=== PATIENT | male | born 1965 | race African-American/Black ===

== ENCOUNTER 2024-02-29 17:54 | Emergency (ER) | payer SELFPAY ==
--- NOTE | 2024-02-29 18:21 | ED_ITS ---
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 from the city when they found after 25 minutes of driving that he is not waking up and she thought that he was sleeping The just drove to here right away Examination Exam Primary Survey: Yes pulseless General: Yes normal body habitus Eyes: Yes no periorbital swelling and Yes fixed dialated pupils Neck: Yes supple Chest: Yes intact to palpation MDM - Cardiac Arrest/CPR MDM Narrative Medical decision making narrative: Upon arrival to CPR was started the patient was provided with 2 doses of Narcan initially nasally The patient did had an intraosseous placed and CPR continued connection to the monitor we found that the patient have possibly V-fib the patient had 1 shock initially Then continued CPR with epinephrine provided as well as 1 dose of dextrose 50 ml Patient initially was being Ambu bag and he was intubated with a 7.5 tube The patient then continued CPR with multiple doses of epinephrine in addition to at least 3 shocks during which the patient did not have any pulse in between Patient also received amiodarone 300 mg IV once 1 dose of Narcan IV 2 mg The patient CPR continued from 5 53 to 6:15 PM when the patient was called at 6:15 PM of February 28 at the bedside The patient had no previous medical history I have no primary care The patient case was discussed with the enterprise manager and he will send his investigators to receive the body Discharge Plan Discharge Patient Disposition: Date/Time: 02/29/24 18:15 Probable Cause of Probable Cause of : Cardiac arrest
== END 2024-02-29 21:38 | disposition expired ==
PROVIDERS: Emergency Provider Emergency Medicine
DX: I46.9 Cardiac arrest, cause unspecified (principal)
CPT/HCPCS: 31500; 36680; 92950; 99285; J0171; J0282